=== PATIENT | female | born 2005 | race Caucasian/White ===

== ENCOUNTER 2024-01-08 21:17 | Emergency (ER) | payer OTHER ==
[~2024-01-08] VITALS: Ht 162.6 cm; Wt 55.1 kg
[2024-01-08 21:19] VITALS: TEMP 97.8
[2024-01-08] MEDS: polymyxin B sulf/tmp ophth drops 10ml RIGHTEYE ONE (21:55)
[2024-01-08 22:16] VITALS: BP 122/80; PULSE 80; RESP 15; O2SAT 98
[2024-01-09] MEDS ORDERED: polymyxin B sulf/tmp ophth drops 10ml RIGHTEYE ONE (08:00)
== END 2024-01-08 22:24 | disposition home or self-care (01) ==
LOC: ER 21:18
DX: H10.211 Acute toxic conjunctivitis, right eye (principal); L25.8 Unspecified contact dermatitis due to other agents
CPT/HCPCS: 99283

== ENCOUNTER 2024-02-25 07:26 | Outpatient (CLI) | payer MEDICAID | END 2024-02-25 23:59 | disposition home or self-care (01) | LOC: RAD 07:26 | PROVIDERS: ATTEND Physician Assistant | DX: O23.11 Infections of bladder in pregnancy, first trimester (principal); O34.591 Maternal care for other abnormalities of gravid uterus, first trimester; N85.4 Malposition of uterus; Z3A.11 11 weeks gestation of pregnancy | CPT/HCPCS: 76801 ==

== ENCOUNTER 2024-06-13 21:05 | Emergency (ER) | payer MEDICAID ==
[~2024-06-13] VITALS: Ht 160 cm; Wt 57.2 kg
[2024-06-13 21:07] VITALS: TEMP 98.4
[2024-06-13] MEDS ORDERED: AMOX500C2 PO (21:21)
[2024-06-13 21:30] VITALS: BP 108/68; PULSE 78; RESP 19; O2SAT 99
[2024-06-13] MEDS: amoxicillin 250mg capsule PO ONE (21:34)
== END 2024-06-13 21:38 | disposition home or self-care (01) ==
LOC: ER 21:05
DX: O26.892 Other specified pregnancy related conditions, second trimester (principal); K08.89 Other specified disorders of teeth and supporting structures
CPT/HCPCS: 99283